=== PATIENT | male | born 1995 | race Caucasian/White ===

== ENCOUNTER 2017-12-03 12:32 | Day surgery (SDC) | payer OTHER ==
[~2017-12-03] VITALS: Ht 175.3 cm; Wt 141.7 kg
[2017-12-03] VITALS (8 sets, daily range): BP systolic 139–154; BP diastolic 67–83; PULSE 80–95; TEMP 97.9–99
[2017-12-03] MEDS ORDERED: K-TAB10 PO (13:32)
[2017-12-03] MEDS ORDERED: NORVASC 10MG10 MG PO (13:32)
[2017-12-03] MEDS ORDERED: CEFTIN 250250 MG/TAB PO (13:33)
[2017-12-04 00:45] VITALS: BP 143/72; PULSE 95; TEMP 99.2
[2017-12-04 04:00] VITALS: BP 132/76; PULSE 134; TEMP 98.8
[2017-12-04 07:40] VITALS: BP 151/69; PULSE 53; TEMP 97.8
[2017-12-04 12:37] VITALS: BP 144/74; PULSE 53; TEMP 98.1
[2017-12-04 13:20] LABS: BASO % 0.2 % (0.0-2.0); GRAN # 9.4 (1.4-6.5); GRAN % 84.3 % (42.2-75.2); HEMOGLOBIN 12.9 g/dl (12.5-16.1); LYMPH # 1.1 (1.2-3.4); MEAN CELL VOLUME 84 fl (80.0-95.0); MEAN CORPUSCULAR HEMOGLOBIN 28 pg (26.0-32.0); MEAN CORPUSCULAR HGB CONC 33 g/dl (33.0-37.0); MEAN PLATELET VOLUME 10.5 fl (7.4-10.4); MONO # 0.5 (0.1-0.6); MONO % 4.8 % (1.7-9.3); PLATELET COUNT 315 K/mm3 (130-400); RED BLOOD COUNT 4.64 M/mm3 (4.20-5.60); REDCELL DISTRIBUTION WIDTH-CV 12.6 % (11.5-14.5)
[2017-12-04 13:37] LABS: ALBUMIN 3.8 gm/dL (3.5-5.0); BILIRUBIN,TOTAL 0.5 mg/dL (0.0-1.0); CALCIUM 9.2 mg/dL (8.4-10.2); CREATININE, serum 0.83 mg/dL (0.66-1.25); POTASSIUM 4.1 mmol/L (3.4-5.0); TOTAL PROTEIN 7.7 gm/dL (6.4-8.2)
[2017-12-04 16:00] VITALS: BP 143/67; PULSE 74; TEMP 97.8
[2017-12-04] MEDS ORDERED: MOTRIN 600600 MG/TAB PO (17:08)
[2017-12-04] MEDS ORDERED: COLACE 100100 MG/CAP PO (17:08)
[2017-12-04] MEDS ORDERED: PERCOCET 325 MG1 TA2 PO (17:08)
[2017-12-04] MEDS ORDERED: CIPRO 500MG TA500 MG PO (17:28)
[2017-12-04] MEDS ORDERED: FLAGYL500 MG PO (17:28)
[2017-12-04 18:48] VITALS: BP 149/69; PULSE 60; TEMP 98
== END 2017-12-04 19:15 | disposition home or self-care (01) ==
LOC: SDCO 12:32 → SURG 21:00 → SDCO 12-04 19:15
PROVIDERS: Surgery
DX: K81.2 Acute cholecystitis with chronic cholecystitis (principal); I10 Essential (primary) hypertension; E87.6 Hypokalemia; G47.33 Obstructive sleep apnea (adult) (pediatric); J45.909 Unspecified asthma, uncomplicated; Z88.2 Allergy status to sulfonamides; Z83.3 Family history of diabetes mellitus; Z82.49 Family history of ischemic heart disease and other diseases of the circulatory system
CPT/HCPCS: OP; J0690; J1100; J1170; J2370; J2405; J2704; J2710; J3010; J7120